=== PATIENT | male | born 1945 | race Caucasian/White ===

== ENCOUNTER 2019-03-20 06:06 | Day surgery (SDC) | payer MEDICARE, OTHER ==
[~2019-03-20] VITALS: Ht 167.6 cm; Wt 87.0 kg
[~2019-03-20 06:06] MED LIST: ATOR40TA; Amlodipine Besy10 MG; Aspir 8181 MG; DICL75ER; FAMO20; FENO67 PO; LOSARTAN-HCTZ1 EAC1
== END 2019-03-20 11:30 | disposition home or self-care (01) ==
LOC: ORSCSDS 06:06
PROVIDERS: Orthopaedic Surgery
PROC: 0LQ24ZZ Repair Left Shoulder Tendon, Percutaneous Endoscopic Approach (ICD-10-PCS; principal; 2019-03-20 07:30)
PROC: 0RNK4ZZ Release Left Shoulder Joint, Percutaneous Endoscopic Approach (ICD-10-PCS; principal; 2019-03-20 07:30)
PROC: 0LS24ZZ Reposition Left Shoulder Tendon, Percutaneous Endoscopic Approach (ICD-10-PCS; principal; 2019-03-20 07:30)
PROC: 0PBB4ZZ Excision of Left Clavicle, Percutaneous Endoscopic Approach (ICD-10-PCS; principal; 2019-03-20 07:30)
DX: M75.112 Incomplete rotator cuff tear or rupture of left shoulder, not specified as traumatic (principal); M75.42 Impingement syndrome of left shoulder; M19.012 Primary osteoarthritis, left shoulder; S46.112A Strain of muscle, fascia and tendon of long head of biceps, left arm, initial encounter; I10 Essential (primary) hypertension; K21.9 Gastro-esophageal reflux disease without esophagitis; E78.5 Hyperlipidemia, unspecified; Z87.891 Personal history of nicotine dependence; Z79.899 Other long term (current) drug therapy
CPT/HCPCS: C1713; J0171; J0690; J1100; J1885; J2001; J2370; J2405; J2704; J3010; J7120

== ENCOUNTER → 2019-11-06 | Outpatient (CLI) | payer MEDICARE, OTHER ==
[~2019-11-06] MED LIST changes: +AMLO10 PO; +ATOR40TA PO; +Aspirin EC81 MG PO; +CENTRUM SILVER1 EAC2 PO; +DICL75ER PO; +FAMO20 PO; +Fenofibrate134 MG PO; +LOSARTAN-HCTZ1 EAC5 PO
== END | disposition home or self-care (01) ==
LOC: LAB EV 14:43 → LAB SHORT 14:43
DX: Z20.828 Contact with and (suspected) exposure to other viral communicable diseases (principal)
CPT/HCPCS: U0003

== ENCOUNTER 2021-04-09 05:54 | Day surgery (SDC) | payer MEDICARE, OTHER ==
[~2021-04-09] VITALS: Ht 167.6 cm; Wt 88.9 kg
--- NOTE | 2021-04-09 08:12 | NUR ---
04/09/21 0812 Ariel Hess SMALL RED KELOID APPEARING SKIN CONDITION ON GAMEZ, APPROXIMATELY DIME SIZED. SMALL BRUISE NEAR ANKLE. MD NOTIFIED NO NEW ORDERS.
--- NOTE | 2021-04-09 14:14 | NUR ---
OOB TO CHAIR, WORKED WITH PT, CLEARED FOR DC HOME, PT WOULD LIKE TO GO HOME TODAY, DENIES ANY PAIN, MESSAGE SENT TO DR. GUTIÉRREZ.
[2021-04-09] MEDS ORDERED: OXYC5 PO (15:58)
[2021-04-09] MEDS ORDERED: PROM25 PO (15:59)
--- NOTE | 2021-04-09 17:00 | NUR ---
DR. MARLA BROWNLEE'D FOR PT TO DC HOME TODAY, DC INSTRUCTIONS GIVEN, VERBALIZED UNDERSTANDING, F/U W/ DR. GUTIÉRREZ THIS WEDNESDAY.
== END 2021-04-09 17:00 | disposition home or self-care (01) ==
LOC: ORSCMMR 05:54 → ORD 07:30 → ORSCMMR 07:30 → SURS 10:42 → ORSCMMR 17:00
PROVIDERS: Orthopaedic Surgery
PROC: 0SRD0J9 Replacement of Left Knee Joint with Synthetic Substitute, Cemented, Open Approach (ICD-10-PCS; principal; 2021-04-09 07:30)
PROC: 8E0YXBZ Computer Assisted Procedure of Lower Extremity (ICD-10-PCS; principal; 2021-04-09 07:30)
DX: M17.12 Unilateral primary osteoarthritis, left knee (principal); I10 Essential (primary) hypertension; K21.9 Gastro-esophageal reflux disease without esophagitis; E78.00 Pure hypercholesterolemia, unspecified; Z79.899 Other long term (current) drug therapy; Z79.82 Long term (current) use of aspirin
CPT/HCPCS: 73560-LT; 97110; 97116; 97161; A9270; C1713; C1776; J0171; J0690; J0735; J1100; J1885; J2250; J2405; J2704; J2795; J3010; J7120

== ENCOUNTER 2021-08-03 00:35 | Inpatient (IN) | payer MEDICARE, OTHER ==
[~2021-08-03] VITALS: Ht 167.6 cm; Wt 92.8 kg
[~2021-08-03 00:35] MED LIST changes: +OXYC5 PO; +PROM25 PO
[2021-08-03 01:38] LABS: Alanine Aminotransfer (ALT/SGP 38 U/L (12-78); Albumin, Blood 3.5 g/dL (3.4-5.0); Albumin/Globulin Ratio 1.1 (0.8-1.8); Alk Phos 97 U/L (50-136); Anion Gap 7 mmol/L (6-16); Aspartate Aminotrans (AST/SGOT 37 U/L (12-37); Bilirubin, Total 0.3 mg/dL (0.1-1.0); Blood Urea Nitrogen 22 mg/dL (8-24); Bun/Creatinine Ratio 25.2 (12.0-20.0); CO2, Blood 26 mmol/L (21-32); Calcium, Blood 9.2 mg/dL (8.5-10.1); Chloride, Blood 112 mmol/L (98-108); Creatinine, Blood 0.87 mg/dL (0.60-1.20); Globulin, Blood 3.3 g/dL (2.2-4.0); Glomerular Filtration Rate >60 (60-); Glucose, Blood 149 mg/dL (70-99); Magnesium, Blood 2.2 mg/dL (1.6-2.4); Potassium, Blood 3.8 mmol/L (3.5-5.5); Sodium, Blood 145 mmol/L (136-145); Total Protein, Blood 6.8 g/dL (6.4-8.2)
[2021-08-03 01:44] LABS: BASOPHILS ABSOLUTE AUTO 0.05 K/mm3 (0.00-0.23); BASOPHILS PERCENT AUTO 1 % (0-2); EOSINOPHILS ABSOLUTE AUTO 0.17 K/mm3 (0.00-0.68); EOSINOPHILS PERCENT AUTO 3 % (0-6); Hematocrit 42.7 % (37.0-53.0); Hemoglobin 14.6 g/dL (13.5-17.5); IMMATURE GRAN ABSOLUTE AUTO 0.02 K/mm3 (0.00-0.10); IMMATURE GRAN PERCENT AUTO 0 % (0-1); LYMPHOCYTES ABSOLUTE AUTO 1.99 K/mm3 (0.84-5.20); LYMPHOCYTES PERCENT AUTO 31 % (21-46); MONOCYTES ABSOLUTE AUTO 0.49 K/mm3 (0.16-1.47); MONOCYTES PERCENT AUTO 8 % (4-13); Mean Corpuscular HGB 32.2 pg (26.0-34.0); Mean Corpuscular HGB Conc 34.2 g/dL (31.5-36.5); Mean Corpuscular Volume 94 fL (80-100); NEUTROPHILS ABSOLUTE AUTO 3.67 K/mm3 (1.96-9.15); NEUTROPHILS PERCENT AUTO 57 % (41-73); NRBC ABSOLUTE 0.02 K/mm3 (0.00-0.02); NRBC Auto 0.3 /100 WBC (0.0-0.2); RDW Coefficient Variation 13.8 % (11.7-14.2); RDW Standard Deviation 48.2 fL (35.1-46.3); Red Blood Cell Count 4.53 M/mm3 (4.30-5.90); White Blood Cell Count 6.39 K/mm3 (4.00-11.30)
[2021-08-03 03:04] LABS: Platelet Count 175 K/mm3 (150-400)
[2021-08-03 04:53] LABS: Influenza A, PCR NEGATIVE (NEGATIVE); Influenza B, PCR NEGATIVE (NEGATIVE); Resp Syncytial Virus, PCR NEGATIVE (NEGATIVE); SARS-Cov-2 (COVID-19) PCR, MMC NEGATIVE (NEGATIVE)
[2021-08-03 05:09] LABS: CHOL/HDL RATIO 7.2; Cholesterol 129 mg/dL (50-200); HDL Cholesterol 18 mg/dL (>39); LDL/HDL RATIO 3.1; Low Density Lipoprotein Chol 56 mg/dL (0-110); Triglycerides 273 mg/dL (30-160); Very Low Density Lipoprot Chol 54 mg/dL (6-32)
--- NOTE | 2021-08-03 07:39 | NUR ---
PRODUCTION CONTROL COORDINATING CLERK AT BEDSIDE. PT NPO PER DR's ORDERS.
[2021-08-03 09:02] LABS: Source, Urine Clean Catch
[2021-08-03 09:08] LABS: Appearance, Urine Clear (Clear); Bilirubin, Urine Neg (Neg); Blood, Urine Neg (Neg); Color, Urine Yellow (P-Yellow); Glucose Qualitative, Urine Neg (Neg); Ketones, Urine Neg (Neg); Leukocyte Esterase, Urine Neg (Neg); Nitrite, Urine Neg (Neg); Protein, Urine Neg (Neg); Urobilinogen, Urine NORM (Normal)
[2021-08-03] MEDS ORDERED: TERB250 PO (10:24)
--- NOTE | 2021-08-03 18:07 | NUR ---
ASSUMED CARE OF PT AT 0700. PT FREE OF CHEST PAIN T/O SHIFT. PT TO DEAN OF ADMISSIONS, 2 STENTS TO OM, R RADIAL SITE WNL, TR BAND DEFLATED AND OFF. DRESSING C/D/I. PT ABLE TO AMBULATE INDEPENDENTLY IN THE ROOM. AT BEDISE TO VISIT TODAY. PT CONTINUES TO DENY ANY PAIN OR DISCOMFORT. PER DR HOWARD, PT WILL LIKELY D/C HOME TOMORROW. NO ACUTE EVENTS T/O SHIFT. WILL CONTINUE TO MONITOR AND REPORT OFF TO ONCOMING SHIFT RN.
[2021-08-04 03:48] LABS: BASOPHILS ABSOLUTE AUTO 0.05 K/mm3 (0.00-0.23); BASOPHILS PERCENT AUTO 1 % (0-2); EOSINOPHILS ABSOLUTE AUTO 0.15 K/mm3 (0.00-0.68); EOSINOPHILS PERCENT AUTO 2 % (0-6); Hematocrit 42.4 % (37.0-53.0); Hemoglobin 14.3 g/dL (13.5-17.5); IMMATURE GRAN ABSOLUTE AUTO 0.02 K/mm3 (0.00-0.10); IMMATURE GRAN PERCENT AUTO 0 % (0-1); LYMPHOCYTES ABSOLUTE AUTO 2.05 K/mm3 (0.84-5.20); LYMPHOCYTES PERCENT AUTO 25 % (21-46); MONOCYTES PERCENT AUTO 8 % (4-13); Mean Corpuscular HGB 32.4 pg (26.0-34.0); Mean Corpuscular HGB Conc 33.7 g/dL (31.5-36.5); Mean Corpuscular Volume 96 fL (80-100); Mean Platelet Volume 12.3 fL (9.1-12.4); NEUTROPHILS ABSOLUTE AUTO 5.32 K/mm3 (1.96-9.15); NEUTROPHILS PERCENT AUTO 64 % (41-73); Platelet Count 137 K/mm3 (150-400); RDW Coefficient Variation 13.9 % (11.7-14.2); RDW Standard Deviation 49.5 fL (35.1-46.3); Red Blood Cell Count 4.42 M/mm3 (4.30-5.90); White Blood Cell Count 8.29 K/mm3 (4.00-11.30)
--- NOTE | 2021-08-04 03:56 | NUR ---
End of shift summary: Overnight went well, VSS, no CP, SB with BBB on monitor, pulses strong throughout, R- Radial site WNL, room air, alba continue to monitor Jabier Khoury RN
[2021-08-04 04:13] LABS: Anion Gap 6 mmol/L (6-16); Blood Urea Nitrogen 16 mg/dL (8-24); Bun/Creatinine Ratio 19.9 (12.0-20.0); CO2, Blood 27 mmol/L (21-32); Calcium, Blood 8.8 mg/dL (8.5-10.1); Chloride, Blood 110 mmol/L (98-108); Glomerular Filtration Rate >60 (60-); Glucose, Blood 104 mg/dL (70-99); Potassium, Blood 3.5 mmol/L (3.5-5.5); Sodium, Blood 143 mmol/L (136-145)
[2021-08-04] MEDS ORDERED: CLOP75 PO (11:28)
[2021-08-04] MEDS ORDERED: LOSA25 PO (11:29)
[2021-08-04] MEDS ORDERED: HYDCHL25 PO (11:30)
[2021-08-04] MEDS ORDERED: METO25ER PO (11:30)
--- NOTE | 2021-08-04 12:16 | NUR ---
Called [facility] to schedule hospital follow-up. Appointment date: 08/12/21 at 1430.
--- NOTE | 2021-08-04 12:53 | NUR ---
DISCHARGE NOTE PT AMBULATED TO PERSONAL VEHICLE, TOLERATED WELL. ALL BELONGINGS AND DISCHARGE INSTRUCTIONS WERE IN PT'S POSSESSION AT TIME OF DISCHARGE INCLUDING STENT CARD. ALL QUESTIONS AND CONCERNS WERE ADDRESSED PRIOR TO DISCHARGE AND PT STATED UNDERSTANDING OF WHO TO CONTACT FOR FURTHER QUESTIONS OR CONCERNS.
[2022-02-10] MEDS ORDERED: DOXAZOSIN MESYLA2 MG PO (16:27)
== END 2021-08-04 11:54 | disposition home or self-care (01) | DRG 247 ==
LOC: ER 00:35 → PCU 04:08
PROVIDERS: Internal Medicine Cardiovascular Disease; Student in an Organized Health Care Education/Training Program; ADMIT Family Medicine
PROC: 027035Z Dilation of Coronary Artery, One Artery with Two Drug-eluting Intraluminal Devices, Percutaneous Approach (ICD-10-PCS; principal; 2021-08-03)
PROC: 4A023N7 Measurement of Cardiac Sampling and Pressure, Left Heart, Percutaneous Approach (ICD-10-PCS; 2021-08-03)
PROC: B2111ZZ Fluoroscopy of Multiple Coronary Arteries using Low Osmolar Contrast (ICD-10-PCS; 2021-08-03)
DX: I21.4 Non-ST elevation (NSTEMI) myocardial infarction (principal); Z20.822 Contact with and (suspected) exposure to COVID-19; I25.10 Atherosclerotic heart disease of native coronary artery without angina pectoris; E87.6 Hypokalemia; I10 Essential (primary) hypertension; E78.5 Hyperlipidemia, unspecified; E66.9 Obesity, unspecified; R06.83 Snoring; I49.3 Ventricular premature depolarization; K21.9 Gastro-esophageal reflux disease without esophagitis; M19.90 Unspecified osteoarthritis, unspecified site; I35.0 Nonrheumatic aortic (valve) stenosis; I51.7 Cardiomegaly; Z68.32 Body mass index [BMI] 32.0-32.9, adult; Z87.891 Personal history of nicotine dependence; Z79.899 Other long term (current) drug therapy; Z79.1 Long term (current) use of non-steroidal anti-inflammatories (NSAID); Z79.82 Long term (current) use of aspirin; Z87.442 Personal history of urinary calculi
CPT/HCPCS: 0241U; 36415; 71046; 76937; 80048; 80053; 80061; 81003; 83690; 83735; 83880; 84484; 85025; 85347; 85730; 93005; 93010; 93306; 93454; 93571; 99152; 99153; 99285-25; A9270; C1725; C1769; C1874; C1887; C1894; C9600; J1644; J1940; J2250; J3010; J7030; J7050; Q9967

== ENCOUNTER 2021-11-03 15:12 | Emergency (ER) | payer MEDICARE, OTHER ==
[~2021-11-03] VITALS: Ht 167.6 cm; Wt 88.5 kg
[~2021-11-03 15:12] MED LIST changes: +CLOP75 PO; +HYDCHL25 PO; +LOSA25 PO; +METO25ER PO; +TERB250 PO
== END 2021-11-03 16:52 | disposition home or self-care (01) ==
LOC: ER 15:12
DX: S40.012A Contusion of left shoulder, initial encounter (principal); S43.402A Unspecified sprain of left shoulder joint, initial encounter; I10 Essential (primary) hypertension; E78.5 Hyperlipidemia, unspecified; I25.2 Old myocardial infarction; W18.09XA Striking against other object with subsequent fall, initial encounter; Z79.82 Long term (current) use of aspirin; Z79.899 Other long term (current) drug therapy
CPT/HCPCS: 73030; 99283-25

== ENCOUNTER 2023-05-02 16:38 | Emergency (ER) | payer MEDICARE, OTHER ==
[~2023-05-02] VITALS: Ht 167.6 cm; Wt 90.7 kg
[~2023-05-02 16:38] MED LIST changes: +DOXAZOSIN MESYLA2 MG PO
[2023-05-02 16:47] VITALS: BP 158/71
== END 2023-05-02 18:05 | disposition home or self-care (01) ==
LOC: ER 16:38
DX: M54.31 Sciatica, right side (principal); I10 Essential (primary) hypertension; E78.5 Hyperlipidemia, unspecified; I25.2 Old myocardial infarction; Z79.899 Other long term (current) drug therapy; Z79.82 Long term (current) use of aspirin
CPT/HCPCS: 99282

== ENCOUNTER 2024-01-08 03:30 | Emergency (ER) | payer MEDICARE, OTHER ==
[~2024-01-08] VITALS: Ht 167.6 cm; Wt 90.7 kg
[2024-01-08 03:58] LABS: BASOPHILS ABSOLUTE AUTO 0.04 K/mm3 (0.00-0.23); BASOPHILS PERCENT AUTO 1 % (0-2); EOSINOPHILS PERCENT AUTO 2 % (0-6); Hematocrit 40.8 % (37.0-53.0); Hemoglobin 13.8 g/dL (13.5-17.5); IMMATURE GRAN ABSOLUTE AUTO 0.02 K/mm3 (0.00-0.10); IMMATURE GRAN PERCENT AUTO 0 % (0-1); LYMPHOCYTES ABSOLUTE AUTO 1.77 K/mm3 (0.84-5.20); LYMPHOCYTES PERCENT AUTO 31 % (21-46); MONOCYTES PERCENT AUTO 11 % (4-13); Mean Corpuscular HGB 32.9 pg (26.0-34.0); Mean Corpuscular HGB Conc 33.8 g/dL (31.5-36.5); Mean Corpuscular Volume 97 fL (80-100); Mean Platelet Volume 12.3 fL (9.1-12.4); NEUTROPHILS ABSOLUTE AUTO 3.15 K/mm3 (1.96-9.15); NEUTROPHILS PERCENT AUTO 55 % (41-73); Platelet Count 138 K/mm3 (150-400); RDW Coefficient Variation 13.6 % (11.7-14.2); RDW Standard Deviation 48.6 fL (35.1-46.3); Red Blood Cell Count 4.19 M/mm3 (4.30-5.90); White Blood Cell Count 5.68 K/mm3 (4.00-11.30)
[2024-01-08 04:19] LABS: Albumin, Blood 3.6 g/dL (3.4-5.0); Albumin/Globulin Ratio 1.2 (0.8-1.8); Bilirubin, Total 0.5 mg/dL (0.1-1.0); Calcium, Blood 8.9 mg/dL (8.5-10.1); Creatinine, Blood 0.91 mg/dL (0.60-1.20); Potassium, Blood 3.7 mmol/L (3.5-5.5); Total Protein, Blood 6.6 g/dL (6.4-8.2)
[2024-01-08 07:17] VITALS: BP 150/70
== END 2024-01-08 07:21 | disposition home or self-care (01) ==
LOC: ER 03:30
PROVIDERS: Physician Assistant
DX: R07.89 Other chest pain (principal); Z79.02 Long term (current) use of antithrombotics/antiplatelets; Z79.899 Other long term (current) drug therapy; I10 Essential (primary) hypertension; E78.5 Hyperlipidemia, unspecified; I25.2 Old myocardial infarction
CPT/HCPCS: 71046; 80053; 83690; 83880; 84484; 85025; 93005; 93010; 99285-25

== ENCOUNTER 2024-01-16 14:58 | Emergency (ER) | payer MEDICARE, OTHER ==
[~2024-01-16] VITALS: Ht 167.6 cm; Wt 90.7 kg
[2024-01-16 15:22] LABS: BASOPHILS ABSOLUTE AUTO 0.03 K/mm3 (0.00-0.23); BASOPHILS PERCENT AUTO 0 % (0-2); EOSINOPHILS ABSOLUTE AUTO 0.04 K/mm3 (0.00-0.68); EOSINOPHILS PERCENT AUTO 1 % (0-6); Hematocrit 39.7 % (37.0-53.0); Hemoglobin 13.6 g/dL (13.5-17.5); IMMATURE GRAN ABSOLUTE AUTO 0.04 K/mm3 (0.00-0.10); IMMATURE GRAN PERCENT AUTO 1 % (0-1); LYMPHOCYTES PERCENT AUTO 23 % (21-46); MONOCYTES ABSOLUTE AUTO 0.54 K/mm3 (0.16-1.47); MONOCYTES PERCENT AUTO 7 % (4-13); Mean Corpuscular HGB 32.9 pg (26.0-34.0); Mean Corpuscular HGB Conc 34.3 g/dL (31.5-36.5); Mean Corpuscular Volume 96 fL (80-100); Mean Platelet Volume 12.5 fL (9.1-12.4); NEUTROPHILS ABSOLUTE AUTO 5.43 K/mm3 (1.96-9.15); NEUTROPHILS PERCENT AUTO 69 % (41-73); Platelet Count 127 K/mm3 (150-400); RDW Coefficient Variation 13.2 % (11.7-14.2); RDW Standard Deviation 46.9 fL (35.1-46.3); Red Blood Cell Count 4.14 M/mm3 (4.30-5.90); White Blood Cell Count 7.88 K/mm3 (4.00-11.30)
[2024-01-16] MEDS ORDERED: Ondansetron HCl 2 MG / ML 2ML Vial IV ONE (15:25)
[2024-01-16] MEDS ORDERED: Morphine Sulfate 4 MG/1 ML Injection IV ONE (15:25)
[2024-01-16 15:36] LABS: International Normalized Ratio 1.02; Prothrombin Time Results 10.9 Sec (9.7-11.5)
[2024-01-16 15:47] LABS: Alanine Aminotransfer (ALT/SGP 28 U/L (12-78); Albumin, Blood 3.6 g/dL (3.4-5.0); Albumin/Globulin Ratio 1.2 (0.8-1.8); Alk Phos 82 U/L (50-136); Anion Gap 9 mmol/L (3-11); Aspartate Aminotrans (AST/SGOT 26 U/L (12-37); Bilirubin, Total 0.5 mg/dL (0.1-1.0); Blood Urea Nitrogen 22 mg/dL (8-24); Bun/Creatinine Ratio 22.9 (12.0-20.0); CO2, Blood 25 mmol/L (21-32); Calcium, Blood 9.5 mg/dL (8.5-10.1); Chloride, Blood 114 mmol/L (98-108); Creatinine, Blood 0.96 mg/dL (0.60-1.20); Ethanol (Alcohol), Blood, Med <3 mg/dL; Glomerular Filtration Rate 80 (60-); Glucose, Blood 113 mg/dL (70-99); Potassium, Blood 3.5 mmol/L (3.5-5.5); Sodium, Blood 144 mmol/L (136-145); Total Protein, Blood 6.6 g/dL (6.4-8.2)
[2024-01-16 16:08] VITALS: BP 143/73
[2024-01-16] MEDS ORDERED: RX Prepack 6 Tabs Oxycodone 5mg UD ONE (17:35)
[2024-01-16] MEDS ORDERED: Percocet 5-3251 EACH PO (17:36)
[2024-01-16] MEDS ORDERED: IBUP600 PO (17:36)
== END 2024-01-16 18:07 | disposition home or self-care (01) ==
LOC: ER 14:58
PROVIDERS: Emergency Medicine
DX: S43.015A Anterior dislocation of left humerus, initial encounter (principal); S43.035A Inferior dislocation of left humerus, initial encounter; S81.812A Laceration without foreign body, left lower leg, initial encounter; S22.42XA Multiple fractures of ribs, left side, initial encounter for closed fracture; S01.91XA Laceration without foreign body of unspecified part of head, initial encounter; I10 Essential (primary) hypertension; W11.XXXA Fall on and from ladder, initial encounter
CPT/HCPCS: 23650; 70450; 71045; 71260; 72125; 73030; 74177; 80053; 80320; 83690; 85025; 85610; 86850; 86900; 86901; 93005; 93010; 96374-59; 96375-59; 99285-25; A9270; J2270; J2405; Q9967

== ENCOUNTER 2024-02-20 13:44 | Emergency (ER) | payer MEDICARE, OTHER ==
[~2024-02-20] VITALS: Ht 167.6 cm; Wt 90.7 kg
[~2024-02-20 13:44] MED LIST changes: +IBUP600 PO; +Percocet 5-3251 EACH PO
[2024-02-20] MEDS ORDERED: Ketorolac Tromethamine 30mg Vial IV ONE (14:15)
[2024-02-20] MEDS ORDERED: Ondansetron HCl 2 MG / ML 2ML Vial IV ONE (14:15)
[2024-02-20] MEDS ORDERED: HYDROmorphone HCl/Pf 1MG SYR IV ONE (14:15)
[2024-02-20 15:00] VITALS: BP 140/61
== END 2024-02-20 15:22 | disposition home or self-care (01) ==
LOC: ER 13:44
DX: S43.005A Unspecified dislocation of left shoulder joint, initial encounter (principal); W19.XXXA Unspecified fall, initial encounter; I10 Essential (primary) hypertension; I25.2 Old myocardial infarction; E78.5 Hyperlipidemia, unspecified; Z79.899 Other long term (current) drug therapy
CPT/HCPCS: 23650; 73030; 99283-25; J1170; J1885; J2405

== ENCOUNTER → 2024-11-28 | Outpatient (CLI) | payer MEDICARE, OTHER ==
[2024-11-28 12:20] LABS: Source, Urine Clean Catch
[2024-11-28 13:19] LABS: Bilirubin, Urine Neg (Neg); Glucose Qualitative, Urine Neg (Neg); Ketones, Urine Neg (Neg); Leukocyte Esterase, Urine 1+ (Neg); Protein, Urine 2+ (Neg); Specific Gravity, Urine 1.025 (1.003-1.022); Urobilinogen, Urine NORM (Normal)
[2024-11-28 13:41] LABS: Color, Urine Yellow (P-Yellow)
[2024-11-28 13:42] LABS: Red Blood Cells, Urine 0-2 /hpf (0-2)
== END ==
LOC: LAB 12:18 → LAB SHORT 12:18
PROVIDERS: Registered Nurse
DX: Z87.448 Personal history of other diseases of urinary system (principal); Z79.899 Other long term (current) drug therapy
CPT/HCPCS: 81001